=== PATIENT | male | born 1945 | race Caucasian/White ===

== ENCOUNTER → 2016-09-29 | Outpatient (REF) | payer MEDICARE ==
[~2016-09-29] MED LIST: ACET1TAB16 PO; FINA5TAB2 PO; INSULANT SC; METF10004 PO; METO50TA7 PO; MULTCAP PO; Meclizine Hcl PO; NOVOINJ3 SC; PRAV40TA2 PO; TAMS0.4C2 PO; VITA250T29 PO
== END ==
LOC: M LAB REF 10:59
PROVIDERS: ATTEND Family Medicine
DX: R19.7 Diarrhea, unspecified (principal)

== ENCOUNTER → 2017-04-12 | Outpatient (REF) | payer MEDICARE ==
[2017-04-12 23:36] LABS: VITAMIN B12 LEVEL 1035 PG/ML
[2017-04-12 23:37] LABS: FOLATE 16.2 NG/ML
[2017-04-12 23:49] LABS: FERRITIN 86 NG/ML (26-388)
== END ==
LOC: M LAB REF 17:26
DX: R53.83 Other fatigue (principal); D64.9 Anemia, unspecified
CPT/HCPCS: 82746

== ENCOUNTER 2018-01-01 11:50 | Observation (INO) | payer MEDICARE ==
[2018-01-01 12:30] LABS: BASO % 0.4 % (0.0-1.0); EOS # 0.2 10^3/uL (0.0-0.50); EOS % 3.1 % (0.0-3.0); HEMATOCRIT 34.9 % (42.0-52.0); HEMOGLOBIN 11.9 g/dl (13.5-17.5); IMMATURE GRANULOCYTE % 0.3 % (0-3.0); LYMPH # 1.1 10^3/uL (1.5-4.5); MEAN CORPUSCULAR HGB CONC 34.1 g/dl (32.0-36.5); MEAN CORPUSCULAR VOLUME 90.9 fl (80.0-96.0); MONO # 0.8 10^3/uL (0.0-0.8); MONO % 10.1 % (0.0-5.0); NEUTROPHILS # 5.7 10^3/uL (1.8-7.7); NEUTROPHILS % 72.1 % (36.0-66.0); PLATELET COUNT, AUTOMATED 166 10^3/uL (150-450); RED BLOOD COUNT 3.84 10^6/uL (4.30-6.10); RED CELL DISTRIBUTION WIDTH 13.2 % (11.5-14.5); WHITE BLOOD COUNT 7.9 10^3/uL (4.0-10.0)
[2018-01-01 13:36] LABS: BLOOD UREA NITROGEN 31 MG/DL (7-18); CALCIUM LEVEL 8.3 MG/DL (8.8-10.2); CARBON DIOXIDE LEVEL 28 MEQ/L (21-32); CHLORIDE LEVEL 105 MEQ/L (98-107); CK-MB VALUE MASS < 1.0 NG/ML (<3.6); CPK CREATINE PHOSPHOKINASE 36 U/L (39-308); CREATININE FOR GFR 1.35 MG/DL (0.70-1.30); GLUCOSE, FASTING 123 MG/DL (70-100); POTASSIUM SERUM 4.4 MEQ/L (3.5-5.1); SODIUM LEVEL 140 MEQ/L (136-145); TROPONIN I < 0.02 NG/ML (< 0.10)
[2018-01-01 13:37] LABS: FREE T4 0.89 NG/DL (0.76-1.46); NT-PRO BNP 168 PG/ML (<125)
[2018-01-01 13:46] LABS: INR 1.06; PROTHROMBIN TIME 13.9 SECONDS (12.1-14.4)
[2018-01-01 14:15] LABS: ALT/SGPT 26 U/L (12-78); ANION GAP 7 MEQ/L (8-16); AST/SGOT 13 U/L (7-37)
[2018-01-01] MEDS ORDERED: GLUCOSE 4 GM CHEW TABLET PO ×2 (14:15)
[2018-01-01] MEDS ORDERED: GLUCAGON FOR INJ 1 MG VIAL (J1610) SC ×2 (14:15)
[2018-01-01] MEDS ORDERED: DEXTROSE 50% 50 ML SYRINGE IV ×2 (14:15)
[2018-01-01 14:16] LABS: ALBUMIN 3.7 GM/DL (3.2-5.2); ALBUMIN/GLOBULIN RATIO 1.28 (1.00-1.93); ALKALINE PHOSPHATASE 83 U/L (45-117); BILIRUBIN,DIRECT 0.2 MG/DL (0.0-0.2); BILIRUBIN,TOTAL 0.7 MG/DL (0.2-1.0); TOTAL PROTEIN 6.6 GM/DL (6.4-8.2)
[2018-01-01] MEDS: NS 1,000 ML IV ×2 (15:25)
[2018-01-01 15:57] LABS: BEDSIDE GLUCOSE 69 MG/DL (83-110)
[2018-01-01] MEDS: HumaLOG INSULIN (NovoLOG) PER UNIT SC ×4 (17:30→20:09)
[2018-01-01 20:02] LABS: BEDSIDE GLUCOSE 216 MG/DL (83-110)
[2018-01-01 20:27] LABS: CK-MB VALUE MASS < 1.0 NG/ML (<3.6); CPK CREATINE PHOSPHOKINASE 30 U/L (39-308)
[2018-01-01 20:28] LABS: TROPONIN I < 0.02 NG/ML (< 0.10)
[2018-01-01] MEDS: FINASTERIDE 5 MG TAB PO ×2 (21:40)
[2018-01-01] MEDS: HEPARIN SOD (PORCINE) 5000 UNITS/ML VIAL SC ×2 (21:40)
[2018-01-01] MEDS: TAMSULOSIN 0.4 MG CAP PO ×2 (21:40)
[2018-01-01] MEDS: PRAVASTATIN 20 MG TAB PO ×2 (21:40)
[2018-01-01 23:35] LABS: CK-MB VALUE MASS < 1.0 NG/ML (<3.6); CPK CREATINE PHOSPHOKINASE 25 U/L (39-308); TROPONIN I < 0.02 NG/ML (< 0.10)
[2018-01-02] MEDS: HEPARIN SOD (PORCINE) 5000 UNITS/ML VIAL SC ×6 (05:09→20:32)
[2018-01-02 07:26] LABS: BASO % 0.5 % (0.0-1.0); EOS # 0.3 10^3/uL (0.0-0.50); EOS % 5.1 % (0.0-3.0); HEMOGLOBIN 11.6 g/dl (13.5-17.5); IMMATURE GRANULOCYTE % 0.3 % (0-3.0); LYMPH # 1.7 10^3/uL (1.5-4.5); LYMPH % 28.5 % (24.0-44.0); MEAN CORPUSCULAR HEMOGLOBIN 30.8 pg (27.0-33.0); MEAN CORPUSCULAR HGB CONC 33.1 g/dl (32.0-36.5); MEAN CORPUSCULAR VOLUME 92.8 fl (80.0-96.0); MONO # 0.8 10^3/uL (0.0-0.8); MONO % 14.1 % (0.0-5.0); NEUTROPHILS % 51.5 % (36.0-66.0); PLATELET COUNT, AUTOMATED 153 10^3/uL (150-450); RED BLOOD COUNT 3.77 10^6/uL (4.30-6.10); RED CELL DISTRIBUTION WIDTH 13.2 % (11.5-14.5); WHITE BLOOD COUNT 5.9 10^3/uL (4.0-10.0)
[2018-01-02 07:41] LABS: ALBUMIN 3.5 GM/DL (3.2-5.2); ALBUMIN/GLOBULIN RATIO 1.13 (1.00-1.93); ALKALINE PHOSPHATASE 82 U/L (45-117); ALT/SGPT 27 U/L (12-78); ANION GAP 7 MEQ/L (8-16); AST/SGOT 13 U/L (7-37); BILIRUBIN,TOTAL 0.3 MG/DL (0.2-1.0); BLOOD UREA NITROGEN 23 MG/DL (7-18); CALCIUM LEVEL 8.5 MG/DL (8.8-10.2); CARBON DIOXIDE LEVEL 23 MEQ/L (21-32); CHLORIDE LEVEL 107 MEQ/L (98-107); CREATININE FOR GFR 1.03 MG/DL (0.70-1.30); GLOMERULAR FILTRATION RATE > 60.0 (>42); GLUCOSE, FASTING 257 MG/DL (70-100); MAGNESIUM LEVEL 1.9 MG/DL (1.8-2.4); POTASSIUM SERUM 4.5 MEQ/L (3.5-5.1); SODIUM LEVEL 137 MEQ/L (136-145); TOTAL PROTEIN 6.6 GM/DL (6.4-8.2)
[2018-01-02] MEDS: THIAMINE 100 MG TAB PO ×2 (08:45)
[2018-01-02] MEDS: HumaLOG INSULIN (NovoLOG) PER UNIT SC ×8 (08:45→20:32)
[2018-01-02] MEDS: LACTOBACILLUS ACIDOPHILUS CAP (BACID) PO ×2 (08:45)
[2018-01-02] MEDS: ASPIRIN 81 MG ENTERIC TAB PO ×2 (08:45)
[2018-01-02 12:19] LABS: BEDSIDE GLUCOSE 349 MG/DL (83-110)
[2018-01-02] MEDS: amLODIPine 5 MG TAB PO ×2 (14:01)
[2018-01-02 17:16] LABS: BEDSIDE GLUCOSE 188 MG/DL (83-110)
[2018-01-02 20:21] LABS: BEDSIDE GLUCOSE 146 MG/DL (83-110)
[2018-01-02] MEDS: PRAVASTATIN 20 MG TAB PO ×2 (20:31)
[2018-01-02] MEDS: TAMSULOSIN 0.4 MG CAP PO ×2 (20:31)
[2018-01-02] MEDS: FINASTERIDE 5 MG TAB PO ×2 (20:32)
[2018-01-03] MEDS: HEPARIN SOD (PORCINE) 5000 UNITS/ML VIAL SC ×4 (04:46→13:02)
[2018-01-03 06:26] LABS: BASO % 0.6 % (0.0-1.0); EOS # 0.4 10^3/uL (0.0-0.50); EOS % 6.6 % (0.0-3.0); HEMATOCRIT 35.1 % (42.0-52.0); HEMOGLOBIN 11.8 g/dl (13.5-17.5); IMMATURE GRANULOCYTE % 0.2 % (0-3.0); LYMPH # 1.8 10^3/uL (1.5-4.5); LYMPH % 32.3 % (24.0-44.0); MEAN CORPUSCULAR HEMOGLOBIN 30.7 pg (27.0-33.0); MEAN CORPUSCULAR HGB CONC 33.6 g/dl (32.0-36.5); MEAN CORPUSCULAR VOLUME 91.4 fl (80.0-96.0); MONO # 0.6 10^3/uL (0.0-0.8); MONO % 11.8 % (0.0-5.0); NEUTROPHILS # 2.6 10^3/uL (1.8-7.7); NEUTROPHILS % 48.5 % (36.0-66.0); PLATELET COUNT, AUTOMATED 159 10^3/uL (150-450); RED BLOOD COUNT 3.84 10^6/uL (4.30-6.10); RED CELL DISTRIBUTION WIDTH 13.2 % (11.5-14.5); WHITE BLOOD COUNT 5.4 10^3/uL (4.0-10.0)
[2018-01-03 06:49] LABS: ALBUMIN/GLOBULIN RATIO 1.29 (1.00-1.93); ALKALINE PHOSPHATASE 90 U/L (45-117); ALT/SGPT 25 U/L (12-78); ANION GAP 8 MEQ/L (8-16); AST/SGOT 13 U/L (7-37); BILIRUBIN,TOTAL 0.4 MG/DL (0.2-1.0); BLOOD UREA NITROGEN 22 MG/DL (7-18); CALCIUM LEVEL 8.7 MG/DL (8.8-10.2); CARBON DIOXIDE LEVEL 25 MEQ/L (21-32); CHLORIDE LEVEL 106 MEQ/L (98-107); CREATININE FOR GFR 1.09 MG/DL (0.70-1.30); GLOMERULAR FILTRATION RATE > 60.0 (>42); GLUCOSE, FASTING 247 MG/DL (70-100); MAGNESIUM LEVEL 1.8 MG/DL (1.8-2.4); POTASSIUM SERUM 4.3 MEQ/L (3.5-5.1); SODIUM LEVEL 139 MEQ/L (136-145); TOTAL PROTEIN 7.1 GM/DL (6.4-8.2)
[2018-01-03] MEDS: HumaLOG INSULIN (NovoLOG) PER UNIT SC ×4 (08:38→13:02)
[2018-01-03] MEDS: LACTOBACILLUS ACIDOPHILUS CAP (BACID) PO ×2 (08:38)
[2018-01-03] MEDS: amLODIPine 5 MG TAB PO ×4 (08:39→14:14)
[2018-01-03] MEDS: ASPIRIN 81 MG ENTERIC TAB PO ×2 (08:39)
[2018-01-03] MEDS: THIAMINE 100 MG TAB PO ×2 (08:39)
[2018-01-03] MEDS ORDERED: PILL CRUSHER/CUTTER 1 EACH XX ×2 (09:00)
[2018-01-03 11:27] LABS: BEDSIDE GLUCOSE 294 MG/DL (83-110)
== END 2018-01-03 16:04 | disposition home or self-care (01) ==
LOC: M ED INP 01-02 08:19 → M PCU 01-02 15:15 → M ED 11:50 → M ED INP 14:09
DX: R55 Syncope and collapse (principal); N17.9 Acute kidney failure, unspecified; D64.9 Anemia, unspecified; I10 Essential (primary) hypertension; E78.5 Hyperlipidemia, unspecified; E11.9 Type 2 diabetes mellitus without complications; N40.0 Benign prostatic hyperplasia without lower urinary tract symptoms; Z79.82 Long term (current) use of aspirin; Z79.4 Long term (current) use of insulin; Z79.84 Long term (current) use of oral hypoglycemic drugs; Z79.899 Other long term (current) drug therapy
CPT/HCPCS: 71045

== ENCOUNTER → 2018-12-20 | Outpatient (REF) | payer OTHER ==
[~2018-12-20] MED LIST changes: +AMLO10TA PO; +ASPI81TA26 PO; +B-1100TA2 PO; +CINN500T PO; +FLOM0.4C39 PO; +LISI10TA15 PO; +LOPE2CA PO; +METF-791 PO; +NOVO70VL SC; +PROBCAP14 PO
[2018-12-20 12:39] LABS: APPEARANCE, URINE CLOUDY (CLEAR); BACTERIA, URINE AUTO 1+ (NEGATIVE); BILIRUBIN, URINE AUTO NEGATIVE (NEGATIVE); BLOOD, URINE BLOOD 1+ (NEGATIVE); COLOR, URINE YELLOW (YELLOW); GLUCOSE, URINE (UA) AUTO 3+ mg/dL (NEGATIVE); KETONE, URINE AUTO NEGATIVE (NEGATIVE); LEUKOCYTE ESTERASE, URINE AUTO 3+ (NEGATIVE); MUCUS, URINE SMALL (NEGATIVE); NITRITE, URINE AUTO POSITIVE (NEGATIVE); PROTEIN, URINE AUTO NEGATIVE (NEGATIVE); RBC, URINE AUTO 9 /HPF (0-3); SQUAMOUS EPITHELIAL CELL UR AU 0 /HPF (0-6); UROBILINOGEN, URINE AUTO 0.2 mg/dL (0.0-2.0); WBC, URINE AUTO TNTC /HPF (0-3)
== END ==
LOC: M LAB REF 12:09
PROVIDERS: ATTEND Physician Assistant
DX: N39.0 Urinary tract infection, site not specified (principal)

== ENCOUNTER 2019-01-15 13:44 | Inpatient (IN) | payer MEDICARE ==
[~2019-01-15] VITALS: Ht 172.7 cm; Wt 74.1 kg
[~2019-01-15 13:44] MED LIST changes: -AMLO10TA5 PO; -LEVA750T7 PO; -TRES1INJ2 SC
[2019-01-15] MEDS ORDERED: TRES1INJ2 SC (13:54)
[2019-01-15 14:23] LABS: HEMATOCRIT 31.6 % (42.0-52.0); HEMOGLOBIN 10.9 g/dl (13.5-17.5); MEAN CORPUSCULAR HEMOGLOBIN 30.6 pg (27.0-33.0); MEAN CORPUSCULAR HGB CONC 34.5 g/dl (32.0-36.5); MEAN CORPUSCULAR VOLUME 88.8 fl (80.0-96.0); PLATELET COUNT, AUTOMATED 162 10^3/uL (150-450); RED BLOOD COUNT 3.56 10^6/uL (4.30-6.10); WHITE BLOOD COUNT 12.9 10^3/uL (4.0-10.0)
[2019-01-15 14:58] LABS: BLOOD UREA NITROGEN 41 MG/DL (7-18); CARBON DIOXIDE LEVEL 25 MEQ/L (21-32); CHLORIDE LEVEL 100 MEQ/L (98-107); CK-MB VALUE MASS < 1.0 NG/ML (<3.6); CPK CREATINE PHOSPHOKINASE 40 U/L (39-308); CREATININE FOR GFR 1.91 MG/DL (0.70-1.30); GLOMERULAR FILTRATION RATE 36.7 (>42); GLUCOSE, FASTING 288 MG/DL (70-100); POTASSIUM SERUM 5.6 MEQ/L (3.5-5.1); SODIUM LEVEL 131 MEQ/L (136-145); TROPONIN I < 0.02 NG/ML (< 0.10)
[2019-01-15] MEDS: NS 1,000 ML IV SCH ×2 (15:11→20:53)
--- NOTE | 2019-01-15 16:00 | REP ---
Right quadrant sonography: History: Right upper quadrant pain. Rule out obstruction. Findings: Scanning through right upper quadrant of the abdomen demonstrates normal homogeneous liver parenchyma. CBD is normal measuring 0.4 cm in greatest diameter. No intrahepatic or extrahepatic biliary ductal dilation is seen. The gallbladder is surgically absent. Pancreas is obscured by abdominal gas. There is no evidence of ascites or right renal abnormality. The right kidney measures 11.6 x 5.5 x 4.2 cm. Impression: Negative right upper quadrant sonography patient status post cholecystectomy. Electronically Signed by Payam Guardado MD 01/15/2019 04:55 P
[2019-01-15 16:08] LABS: ALT/SGPT 1827 U/L (12-78); AMYLASE 42 U/L (25-115); BILIRUBIN,DIRECT 0.7 MG/DL (0.0-0.2); BILIRUBIN,TOTAL 1.2 MG/DL (0.2-1.0); LIPASE 413 U/L (73-393)
[2019-01-15] MEDS ORDERED: AMLO10TA5 PO (17:35)
[2019-01-15] MEDS ORDERED: SOD POLYSTYRENE SULFONATE SUSP 15 GM/60 ML UD PO ONE (18:15)
--- NOTE | 2019-01-15 18:29 | HPEPDOC ---
[facility] Medical History & Physical Date of Admission Jan 15, 2019 Date of Service: Jan 15, 2019 Primary Care Physician: A Attending Physician: ALLA BLACK MD History and Physical CHIEF COMPLAINT: Sent by PCP for abnormal labs HISTORY OF PRESENT ILLNESS: 74-year-old male with past medical history of hypertension, hyperlipidemia, chronic kidney disease and diabetes mellitus p resents from PCPs office for abnormal labs. Patient was recently treated for UTI with 10 days of antibiotics, which he completed 2 weeks ago. He was feeling well up until last night when he developed nausea and vomiting, vomited 6 times, nonbloody, nonbilious. He did not have any associated symptoms, denies diarrhea or abdominal pain. He started feeling well in the morning, had a routine follow-up with his primary care physician who then sent him to the emergency room for abnormal labs. Patient is currently resting comfortably in the ED without any complaints at all. In the 80s found to have potassium of 5.6, acute kidney injury and acute hepatitis. Patient reports that he takes ibuprofen 400 mg every night, has been taking it for years, reports it was for pain initially, but now is not sure why. As per , he was advised to switch it to Tylenol due to its potential renal toxicity/GI bleed, unsure if he did switch it to Tylenol or not. Patient denies any short of breath, chest pain, nausea, vomiting, abdominal pain or diarrhea at this time. 10 point review of systems negative except for above PAST MEDICAL HISTORY: 1. Hypertension. 2. Diabetes. 3. Chronic kidney disease. 4. Hyperlipidemia 5. BPH PAST SURGICAL HISTORY: 1. Cholecystectomy. 2. Cervical fusion. SOCIAL HISTORY: Never smoker. Denies all: Denies drug use FAMILY HISTORY: Father with polio ALLERGIES: Please see below. HOME MEDICATIONS: Please see below. PHYSICAL EXAMINATION: VITAL SIGNS: Please see below. GENERAL: No distress HEENT: Normocephalic, atraumatic, moist mucous membranes NECK: Supple CARDIOVASCULAR EXAMINATION: S1, S2, no murmurs RESPIRATORY EXAMINATION: Clear to auscultation, no wheezing ABDOMINAL EXAMINATION: Soft, nontender, nondistended, positive bowel sounds EXTREMITIES: Range of motion intact SKIN: No rash NEUROLOGICAL EXAMINATION: Alert and oriented 3, no focal deficits PSYCHIATRIC EXAMINATION: Calm and cooperative LABORATORY DATA: See below. IMAGING: Right upper quadrant ultrasound without acute pathology MICROBIOLOGY: Please see below. ASSESSMENT: 74-year-old male with past medical history of hypertension, diabetes and chronic kidney disease who may have been taking chronic ibuprofen/acetaminophen presents from PCPs office with acute hepatitis and acute kidney injury. PLAN: 1. Acute hepatitis. Etiology unknown, possible drug toxicity versus infection, denies history of hepatitis, recently treated with antibiotics, on metformin and pravastatin, possibly taking ibuprofen/acetaminophen. Acetaminophen and ibuprofen levels ordered, empiric antibiotics, IV fluids, supportive care. 2. Acute kidney injury. Possibly due to medication toxicity versus dehydration Hold NENA inhibitor, hydrochlorothiazide, metformin IV fluids, give 1 dose of Kayexalate for hyperkalemia. 3. Diabetes mellitus. Hold metformin. Slightly scale insulin with fingersticks every before meals and at bedtime 4. Hypertension. Continue Norvasc. Hold hydrochlorothiazide and lisinopril. 5. Hyperlipidemia. Hold pravastatin due to acute hepatitis. 6. BPH. Continue Flomax and finasteride DVT prophylaxis: Heparin subcutaneous GI prophylaxis: Not needed Vital Signs Vital Signs Date Time Temp Pulse Resp B/P (MAP) Pulse Ox O2 Delivery O2 Flow Rate FiO2 01/15/19 17:30 65 127/59 (81) 96 Room Air 01/15/19 13:45 98.4 16 Laboratory Data Labs 24H Laboratory Tests 2 01/15/19 14:09: Nucleated Red Blood Cells % (auto) 0.0, Anion Gap 6L, Glomerular Filtration Rate 36.7L, Calcium Level 9.0, Total Bilirubin 1.2H, Direct Bilirubin 0.7H, Aspartate Amino Transf (AST/SGOT) 1896H, Alanine Aminotransferase (ALT/SGPT) 1827H, Alkaline Phosphatase 292H, Total Creatine Kinase 40, Creatine Kinase MB < 1.0, Creatine Kinase MB Relative Index 2.50, Troponin I < 0.02, Total Protein 7.0, Albumin 4.0, Albumin/Globulin Ratio 1.33, Amylase Level 42, Lipase 413H CBC/BMP Laboratory Tests 01/15/19 14:09 Home Medications Scheduled Amlodipine Besylate (Amlodipine Besylate) 10 Mg Tablet, 10 MG PO DAILY Aspirin (Aspirin EC) 81 Mg Tab, 81 MG PO DAILY Finasteride (Finasteride) 5 Mg Tab, 5 MG PO QHS Insulin Degludec (Tresiba Flextouch U-100) 100 Unit/1 Ml Insuln.pen, 24 UNIT SC QAM Lisinopril/Hydrochlorothiazide (Lisinopril-Hctz 10-12.5 mg Tab) 1 Tab Tab, 1 TAB PO DAILY Metformin HCl (Metformin HCl ER) 500 Mg Tab, 500 MG PO QHS Pravastatin Sodium (Pravastatin Sodium) 40 Mg Tab, 20 MG PO QHS Tamsulosin HCl (Flomax) 0.4 Mg Cap, 0.4 MG PO DAILY Thiamine HCl (Vitamin B-1) 100 Mg Tab, 250 MG PO DAILY Allergies Coded Allergies: No Known Allergies (Unverified , 01/01/18) A-FIB/CHADSVASC A-FIB History Current/History of A-Fib/PAF?: No ALLA BLACK MD Jan 15, 2019 18:29
[2019-01-15] MEDS ORDERED: DEXTROSE 50% 50 ML SYRINGE IV PRN (18:30)
[2019-01-15] MEDS ORDERED: GLUCOSE 4 GM CHEW TABLET PO PRN (18:30)
[2019-01-15] MEDS ORDERED: GLUCAGON FOR INJ 1 MG VIAL (J1610) SC PRN (18:30)
[2019-01-15] MEDS ORDERED: PILL CUTTER 1 EACH XX PRN (18:45)
[2019-01-15 20:10] VITALS: BP 145/67
--- NOTE | 2019-01-15 20:24 | ECGEPIP ---
[facility] - ED Test Date: 2019-01-15 Pat Name: NARCISO QUIJANO Department: Room: - Gender: Male [place] [employer] Researcher: TAMIKA : 1945 Requested By: MARGAUX DU Order Number: [id number] Reading MD: Sam Justice Measurements Intervals [place] Rate: 69 P: 53 AK: 180 QRS: 34 QRSD: 98 T: 39 QT: 351 QTc: 376 Interpretive Statements SINUS RHYTHM BENIGN EARLY REPOLARIZATION SIMILAR TO 01/02/18 Electronically Signed on 01-15-2019 20:23:38 EST by Sam Justice
[2019-01-15] MEDS: CIPROFLOXACIN 400 MG in IV 1 EA IV SCH (20:53)
[2019-01-15] MEDS: HumaLOG INSULIN (NovoLOG) PER UNIT SC SCH (21:48)
[2019-01-15] MEDS: metroNIDAZOLE 500 MG in IV 1 EA IV SCH (23:19)
[2019-01-15] MEDS: FINASTERIDE 5 MG TAB PO SCH (23:19)
[2019-01-16] MEDS: NS 1,000 ML IV SCH ×2 (03:12→07:53)
[2019-01-16 06:00] VITALS: BP 156/70
[2019-01-16 06:21] LABS: HEMOGLOBIN 11.3 g/dl (13.5-17.5); MEAN CORPUSCULAR HEMOGLOBIN 29.7 pg (27.0-33.0); MEAN CORPUSCULAR HGB CONC 33.2 g/dl (32.0-36.5); MEAN CORPUSCULAR VOLUME 89.5 fl (80.0-96.0); PLATELET COUNT, AUTOMATED 147 10^3/uL (150-450); WHITE BLOOD COUNT 7.8 10^3/uL (4.0-10.0)
[2019-01-16 06:49] LABS: ALBUMIN 3.6 GM/DL (3.2-5.2); CALCIUM LEVEL 8.8 MG/DL (8.8-10.2); CREATININE FOR GFR 1.52 MG/DL (0.70-1.30); GLOMERULAR FILTRATION RATE 47.7 (>42); MAGNESIUM LEVEL 2.2 MG/DL (1.8-2.4); POTASSIUM SERUM 4.1 MEQ/L (3.5-5.1); TOTAL PROTEIN 7.1 GM/DL (6.4-8.2)
[2019-01-16] MEDS: THIAMINE 100 MG TAB PO SCH (08:42)
[2019-01-16] MEDS: HumaLOG INSULIN (NovoLOG) PER UNIT SC SCH ×4 (08:42→21:00)
[2019-01-16] MEDS: ASPIRIN 81 MG ENTERIC TAB PO SCH (08:42)
[2019-01-16] MEDS: HEPARIN SOD (PORCINE) 5000 UNITS/ML VIAL SC SCH ×2 (08:43→22:31)
[2019-01-16] MEDS: TAMSULOSIN 0.4 MG CAP PO SCH (08:43)
[2019-01-16] MEDS: CIPROFLOXACIN 400 MG in IV 1 EA IV SCH ×2 (08:43→22:22)
[2019-01-16] MEDS: amLODIPine 10 MG TAB PO SCH (08:43)
[2019-01-16] MEDS: metroNIDAZOLE 500 MG in IV 1 EA IV SCH ×2 (10:47→23:37)
[2019-01-16 14:00] VITALS: BP 138/75
--- NOTE | 2019-01-16 17:12 | IPNPDOC ---
Date Seen The patient was seen on 01/16/19. Progress Note HISTORY OF PRESENT ILLNESS: 74-year-old male with past medical history of hypertension, hyperlipidemia, chronic kidney disease and diabetes mellitus presents from PCPs office for abnormal labs. Patient was recently treated for UTI with 10 days of antibiotics, which he completed 2 weeks ago. He was feeling well up until last night when he developed nausea and vomiting, vomited 6 times, nonbloody, nonbilious. He did not have any associated symptoms, denies diarrhea or abdominal pain. He started feeling well in the morning, had a routine follow- up with his primary care physician who then sent him to the emergency room for abnormal labs. Patient is currently resting comfortably in the ED without any complaints at all. In the 80s found to have potassium of 5.6, acute kidney injury and acute hepatitis. Patient reports that he takes ibuprofen 400 mg every night, has been taking it for years, reports it was for pain initially, but now is not sure why. As per , he was advised to switch it to Tylenol due to its potential renal toxicity/GI bleed, unsure if he did switch it to Tylenol or not. Patient denies any short of breath, chest pain, nausea, vomiting, abdominal pain or diarrhea at this time. 01/16/2019 Patient comfortable in bed without any complaints at this time, renal and liver function improving, denies any short of breath, chest pain, nausea, vomiting, abdominal pain. 10 point review of systems negative except for above HOME MEDICATIONS: Please see below. PHYSICAL EXAMINATION: VITAL SIGNS: Please see below. GENERAL: No distress HEENT: Normocephalic, atraumatic, moist mucous membranes NECK: Supple CARDIOVASCULAR EXAMINATION: S1, S2, no murmurs RESPIRATORY EXAMINATION: Clear to auscultation, no wheezing ABDOMINAL EXAMINATION: Soft, nontender, nondistended, positive bowel sounds EXTREMITIES: Range of motion intact SKIN: No rash NEUROLOGICAL EXAMINATION: Alert and oriented 3, no focal deficits PSYCHIATRIC EXAMINATION: Calm and cooperative LABORATORY DATA: See below. IMAGING: Right upper quadrant ultrasound without acute pathology MICROBIOLOGY: Please see below. ASSESSMENT: 74-year-old male with past medical history of hypertension, diabetes and chronic kidney disease who may have been taking chronic ibuprofen/acetaminophen presents from PCPs office with acute hepatitis and acute kidney injury. PLAN: 1. Acute hepatitis. Etiology unknown, liver function tests improving, supportive care, will monitor. 2. Acute kidney injury. Possibly due to medication toxicity versus dehydration Continue holding hydrochlorothiazide and metformin. Renal function improving, restart lisinopril, discontinue IV fluids. 3. Diabetes mellitus. Hold metformin. Slightly scale insulin with fingersticks every before meals and at bedtime 4. Hypertension. Continue Norvasc. Restarted lisinopril, hold hydrochlorothiazide for now. 5. Hyperlipidemia. Hold pravastatin due to acute hepatitis. 6. BPH. Continue Flomax and finasteride DVT prophylaxis: Heparin subcutaneous GI prophylaxis: Not needed VS, I&O, 24H, Fishbone Vital Signs/I&O Vital Signs Date Time Temp Pulse Resp B/P (MAP) Pulse Ox O2 Delivery O2 Flow Rate FiO2 01/16/19 08:43 64 156/70 01/16/19 06:00 98.6 20 96 01/15/19 20:10 Room Air I&O- Last 24 Hours up to 6 AM 01/16/19 05:59 Intake Total 1975 ml Output Total 0 ml Balance 1975 ml Laboratory Data 24H LABS Laboratory Tests 2 01/15/19 18:10: Lab Scanned Report LAB OTHER 01/15/19 18:57: Lactic Acid Level 1.6, Procalcitonin 3.76, Acetaminophen Level < 2.0L 01/15/19 20:15: Urine Color STANLEY, Urine Appearance CLOUDYH, Urine pH 5.0, Urine Specific [place] 1.012, Urine Protein 1+H, Urine Glucose (UA) 3+H, Urine Ketones NEGATIVE, Urine Blood 1+H, Urine Nitrite NEGATIVE, Urine Bilirubin NEGATIVE, Urine Urobilinogen 0.2, Urine Leukocyte Esterase 3+H, Urine WBC (Auto) TNTCH, Urine RBC (Auto) 9H, Urine Hyaline Casts (Auto) 2, Urine Bacteria (Auto) 3+H, Urine Squamous Epithelial Cells 1, Urine Transitional Epithelial Cells 1, Urine Amorphous Sediment SMALLH, Urine Mucus (Auto) SMALL, Urine Sperm (Auto) 01/15/19 20:36: Bedside Glucose (Misc Panel) 295H 01/16/19 06:06: Nucleated Red Blood Cells % (auto) 0.0, Anion Gap 3L, Glomerular Filtration Rate 47.7, Calcium Level 8.8, Magnesium Level 2.2, Total Bilirubin 1.0, Aspartate Amino Transf (AST/SGOT) 649H, Alanine Aminotransferase (ALT/SGPT) 1214H, Alkaline Phosphatase 342H, Total Protein 7.1, Albumin 3.6, Albumin/Globulin Ratio 1.03 01/16/19 11:32: Bedside Glucose (Misc Panel) 192H CBC/BMP Laboratory Tests 01/16/19 06:06 Microbiology Microbiology 01/15/19 Urine Culture, Received Pending 01/15/19 Blood Culture, Received Pending ALLA BLACK MD Jan 16, 2019 17:12
[2019-01-16] MEDS ORDERED: LISINOPRIL 10 MG TAB PO SCH (21:00)
[2019-01-16 22:00] VITALS: BP 119/56
[2019-01-16] MEDS: FINASTERIDE 5 MG TAB PO SCH (22:22)
[2019-01-16 22:27] VITALS: BP 136/63
[2019-01-17 06:00] VITALS: BP 145/70
[2019-01-17 07:09] LABS: HEMATOCRIT 37.4 % (42.0-52.0); HEMOGLOBIN 12.1 g/dl (13.5-17.5); MEAN CORPUSCULAR HEMOGLOBIN 30.4 pg (27.0-33.0); MEAN CORPUSCULAR HGB CONC 32.4 g/dl (32.0-36.5); PLATELET COUNT, AUTOMATED 164 10^3/uL (150-450); RED BLOOD COUNT 3.98 10^6/uL (4.30-6.10); WHITE BLOOD COUNT 7.5 10^3/uL (4.0-10.0)
[2019-01-17 07:34] LABS: ALBUMIN 3.7 GM/DL (3.2-5.2); BILIRUBIN,TOTAL 0.5 MG/DL (0.2-1.0); CREATININE FOR GFR 1.29 MG/DL (0.70-1.30); GLOMERULAR FILTRATION RATE 57.6 (>42); MAGNESIUM LEVEL 1.9 MG/DL (1.8-2.4); PHOSPHORUS LEVEL 2.7 MG/DL (2.5-4.9); POTASSIUM SERUM 4.2 MEQ/L (3.5-5.1); TOTAL PROTEIN 7.3 GM/DL (6.4-8.2)
[2019-01-17] MEDS: CIPROFLOXACIN 400 MG in IV 1 EA IV SCH (08:28)
[2019-01-17] MEDS: HumaLOG INSULIN (NovoLOG) PER UNIT SC SCH ×2 (08:29→12:44)
[2019-01-17] MEDS: HEPARIN SOD (PORCINE) 5000 UNITS/ML VIAL SC SCH (08:29)
[2019-01-17] MEDS: ASPIRIN 81 MG ENTERIC TAB PO SCH (08:29)
[2019-01-17] MEDS: THIAMINE 100 MG TAB PO SCH (08:29)
[2019-01-17] MEDS: TAMSULOSIN 0.4 MG CAP PO SCH (08:29)
[2019-01-17 08:31] VITALS: BP 121/55
[2019-01-17] MEDS: amLODIPine 10 MG TAB PO SCH (08:31)
[2019-01-17] MEDS: metroNIDAZOLE 500 MG in IV 1 EA IV SCH (10:18)
[2019-01-17] MEDS ORDERED: LEVA750T7 PO (13:32)
--- NOTE | 2019-01-17 17:19 | DS.PDOC ---
Discharge Summary General Date of Admission Jan 15, 2019 at 18:10 Date of Discharge 01/17/2019 Attending Physician: ALLA BLACK MD Discharge Summary PROCEDURES PERFORMED DURING STAY: None. ADMITTING DIAGNOSES: 1. Acute kidney injury, hepatitis. DISCHARGE DIAGNOSES: 1. Acute kidney injury, hepatitis. COMPLICATIONS/CHIEF COMPLAINT: Diabetes Mellitus Hepatitis Hld Htn Renal Fa ilure. HISTORY OF PRESENT ILLNESS: 74-year-old male with past medical history of hypertension, hyperlipidemia and diabetes mellitus, was admitted for acute renal failure and hepatitis. The etiology of his abnormal labs was unknown, most likely medication related. He was stopped on all renal and hepatic toxic medications, with subsequent resolution of his acute kidney injury and significant improvement in hepatitis. His renal function is back to baseline, hepatic function, close to baseline. Patient will be discharged with close follow-up with primary care physician and repeat labs within 1 week. He is advised to hold pravastatin and oral diabetic meds for now until liver function returns to normal and he has follow-up with his primary care physician. Patient is hemodynamically and clinically stable for discharge at this time. HOSPITAL COURSE: As above. DISCHARGE MEDICATIONS: Please see below. ALLERGIES: Please see below. PHYSICAL EXAMINATION: VITAL SIGNS: Please see below. GENERAL: No distress HEENT: Normocephalic, atraumatic, moist mucous membranes NECK: Supple CARDIOVASCULAR EXAMINATION: S1, S2, no murmurs RESPIRATORY EXAMINATION: Clear to auscultation, no wheezing ABDOMINAL EXAMINATION: Soft, nontender, nondistended, positive bowel sounds EXTREMITIES: Range of motion intact SKIN: No rash NEUROLOGICAL EXAMINATION: Alert and oriented 3, no focal deficits PSYCHIATRIC EXAMINATION: Calm and cooperative LABORATORY DATA: Please see below. PROGNOSIS: Good ACTIVITY: As tolerated. DIET: Cardiac with consistent carbs DISCHARGE PLAN: She will follow-up with PCP in 1-2 weeks and have blood work repeated in one week DISPOSITION: 01 Home, Self-Care. DISCHARGE INSTRUCTIONS: 1. As above. DISCHARGE CONDITION: Stable. TIME SPENT ON DISCHARGE: Greater than 34 minutes. Vital Signs/I&Os Vital Signs Date Time Temp Pulse Resp B/P (MAP) Pulse Ox O2 Delivery O2 Flow Rate FiO2 01/17/19 08:31 65 121/55 01/17/19 06:00 98.3 20 96 01/16/19 14:00 Room Air I&O- Last 24 Hours up to 6 AM 01/17/19 05:59 Intake Total 3425 ml Output Total 600 ml Balance 2825 ml Laboratory Data Labs 24H Laboratory Tests 2 01/16/19 18:00: Bedside Glucose (Misc Panel) 278H 01/16/19 20:48: Bedside Glucose (Misc Panel) 194H 01/17/19 06:26: Nucleated Red Blood Cells % (auto) 0.0, Anion Gap 6L, Glomerular Filtration Rate 57.6, Calcium Level 9.0, Phosphorus Level 2.7, Magnesium Level 1.9, Total Bilirubin 0.5, Aspartate Amino Transf (AST/SGOT) 151H, Alanine Aminotransferase (ALT/SGPT) 747H, Alkaline Phosphatase 295H, Total Protein 7.3, Albumin 3.7, Albumin/Globulin Ratio 1.03 01/17/19 11:39: Bedside Glucose (Misc Panel) 224H CBC/BMP Laboratory Tests 01/17/19 06:26 FSBS Laboratory Tests Test 01/16/19 18:00 01/16/19 20:48 01/17/19 11:39 Range/Units Bedside Glucose (Misc Panel) 278 194 224 83-110 MG/DL Microbiology Microbiology 01/15/19 Urine Culture - Final, Complete Escherichia Coli 01/15/19 Blood Culture - Preliminary, Resulted No growth after 24 hours . All specim... Discharge Medications Scheduled Amlodipine Besylate (Amlodipine Besylate) 10 Mg Tablet, 10 MG PO DAILY, (Reported) Aspirin (Aspirin EC) 81 Mg Tab, 81 MG PO DAILY, (Reported) Finasteride (Finasteride) 5 Mg Tab, 5 MG PO QHS, (Reported) Insulin Degludec (Tresiba Flextouch U-100) 100 Unit/1 Ml Insuln.pen, 24 UNIT SC QAM, (Reported) Levofloxacin (Levaquin) 750 Mg Tablet, 1 TAB PO DAILY Lisinopril/Hydrochlorothiazide (Lisinopril-Hctz 10-12.5 mg Tab) 1 Tab Tab, 1 TAB PO DAILY, (Reported) Tamsulosin HCl (Flomax) 0.4 Mg Cap, 0.4 MG PO DAILY, (Reported) Thiamine HCl (Vitamin B-1) 100 Mg Tab, 250 MG PO DAILY, (Reported) Allergies Coded Allergies: No Known Allergies (Unverified , 01/01/18) ALLA BLACK MD Jan 17, 2019 17:19
== END 2019-01-17 14:08 | disposition home or self-care (01) | DRG 442 ==
LOC: M ED 13:44 → M ED INP 18:10 → M MSPAV 20:10
PROVIDERS: ADMIT Internal Medicine; ATTEND Internal Medicine
DX: B17.9 Acute viral hepatitis, unspecified (principal); N17.9 Acute kidney failure, unspecified; R74.8 Abnormal levels of other serum enzymes; E87.5 Hyperkalemia; E11.9 Type 2 diabetes mellitus without complications; I10 Essential (primary) hypertension; E78.5 Hyperlipidemia, unspecified; Z79.899 Other long term (current) drug therapy; Z79.82 Long term (current) use of aspirin; Z79.4 Long term (current) use of insulin; N40.0 Benign prostatic hyperplasia without lower urinary tract symptoms

== ENCOUNTER → 2019-01-15 | Outpatient (REF) | payer MEDICARE ==
[~2019-01-15] MED LIST changes: +AMLO10TA5 PO; +LEVA750T7 PO; +TRES1INJ2 SC
[2019-01-15 14:11] LABS: HEPATITIS A ANTIBODY IGM NEGATIVE (NEGATIVE); HEPATITIS B CORE ANTIBODY IGM NEGATIVE (NEGATIVE); HEPATITIS B SURFACE ANTIGEN NEGATIVE (NEGATIVE); HEPATITIS C VIRUS ABY INDEX 0.1 INDEX (<0.8)
== END ==
LOC: M LAB REF 12:26
PROVIDERS: ATTEND Family Medicine
DX: R74.8 Abnormal levels of other serum enzymes (principal)

== ENCOUNTER → 2019-01-15 | Outpatient (CLI) | payer MEDICARE ==
--- NOTE | 2019-01-15 13:08 | REP ---
CT brain: 01/15/2019. Indication: Head trauma. Comparison: 10/23/2014. Technique: New unenhanced axial CT images of the brain were obtained from skull base to vertex. Findings: There is no acute intracranial hemorrhage, acute cortical infarction, mass effect, hydrocephalus or acute cortical infarction. Intracranial atherosclerotic disease is present. Age-related volume loss is present. Impression: No acute intracranial process. Electronically Signed by Taj Khan DO 01/15/2019 12:59 P
== END ==
LOC: M RAD 12:34
PROVIDERS: ATTEND Family Medicine
DX: S09.90XA Unspecified injury of head, initial encounter (principal)

== ENCOUNTER → 2019-01-30 | Outpatient (REF) | payer MEDICARE ==
[~2019-01-30] MED LIST changes: +AMLO10TA5 PO; +LEVA750T7 PO; +TRES1INJ2 SC
[2019-01-31 11:01] LABS: HEPATITIS A ANTIBODY IGM NEGATIVE (NEGATIVE); HEPATITIS B CORE ANTIBODY IGM NEGATIVE (NEGATIVE); HEPATITIS B SURFACE ANTIGEN NEGATIVE (NEGATIVE); HEPATITIS C VIRUS ABY INDEX 0.1 INDEX (<0.8)
== END ==
LOC: M LAB REF 17:21
PROVIDERS: ATTEND Registered Nurse
DX: R94.5 Abnormal results of liver function studies (principal)

== ENCOUNTER → 2019-04-17 | Outpatient (REF) | payer MEDICARE ==
[~2019-04-17] MED LIST changes: +TIMO0.5S39 OU; +ZEST1TAB2 PO
[2019-04-17 17:20] LABS: FERRITIN 97 NG/ML (26-388); IRON (FE) 112 UG/DL (65-175); PERCENT SATURATION 40.1 % (19.7-50.0); TOTAL IRON BINDING CAPACITY 279 UG/DL (250-450)
[2019-04-18 11:28] LABS: VITAMIN B12 LEVEL 1006 PG/ML
[2019-04-18 11:54] LABS: FOLATE > 24.0 NG/ML
== END ==
LOC: M LAB REF 16:18
PROVIDERS: ATTEND Family Medicine
DX: D64.9 Anemia, unspecified (principal); E11.21 Type 2 diabetes mellitus with diabetic nephropathy

== ENCOUNTER → 2020-02-24 | Outpatient (REF) | payer MEDICARE ==
[~2020-02-24] MED LIST changes: -AMLO10TA5 PO; +AMLO1TAB25 PO; -METF-791 PO; +METF-838 PO
[2020-02-24 17:19] LABS: PERCENT SATURATION 83.6 % (19.7-50.0)
[2020-02-24 17:27] LABS: FOLATE 12.8 NG/ML
[2020-02-25 13:58] LABS: ATYPICAL LYMPH 8 % (0-5); BASOPHILS 1 % (0-1); EOSINOPHILS 2 % (0-3); LYMPHOCYTES 65 % (16-44); MONOCYTES 2 % (0-5); NEUTROPHILS 22 % (28-66)
[2020-02-25 14:00] LABS: ANISOCYTOSIS 1+
[2020-02-25 14:01] LABS: POIKILOCYTOSIS 1+
[2020-02-25 14:03] LABS: OVALOCYTES 1+
[2020-02-25 14:05] LABS: PLATELET ESTIMATE DECREASED (NORMAL)
== END ==
LOC: M LAB REF 16:27
PROVIDERS: ATTEND Family Medicine
DX: D64.9 Anemia, unspecified (principal); D72.9 Disorder of white blood cells, unspecified

== ENCOUNTER → 2020-02-28 | Outpatient (REF) | payer MEDICARE | LOC: M LAB REF 09:00 | PROVIDERS: ATTEND Family Medicine | DX: R19.7 Diarrhea, unspecified (principal) ==

== ENCOUNTER 2020-03-09 10:13 | Emergency (ER) | payer MEDICARE ==
[2020-03-09] MEDS ORDERED: NS 500 ML IV ONE (10:30)
[2020-03-09] MEDS ORDERED: NS 1,000 ML IV SCH (11:42)
[2020-03-09] MEDS ORDERED: EPINEPHrine INJ 1 MG/ML 1ML AMP IM PRN (11:45)
[2020-03-09] MEDS ORDERED: ALBUTEROL SULFATE 2.5 MG/0.5 ML INH NEB SOLN INH PRN (11:45)
[2020-03-09] MEDS ORDERED: methylPREDNISolone 125MG 2ML VIAL IV PRN (11:45)
[2020-03-09] MEDS ORDERED: CASIRIVIMAB (REGN10933) 1,200 MG, IMDEVIMAB (REGN10987) 1,200 MG in NS 230 ML IV ONE (11:45)
[2020-03-09] MEDS ORDERED: ALBUTEROL 90 MCG/ACT 8GM HFA INHALER INH PRN (11:45)
[2020-03-09] MEDS ORDERED: diphenhydrAMINE 50MG/ML VIAL (J1200) IV PRN (11:45)
[2020-03-09 12:00] VITALS: BP 137/63
[2020-03-25] MEDS ORDERED: VITA500C24 PO (13:29)
[2020-03-25] MEDS ORDERED: VITMTA PO (13:29)
[2020-03-25] MEDS ORDERED: NOVOINJ SC (13:29)
[2020-03-25] MEDS ORDERED: D 101000 PO (13:29)
[2020-03-25] MEDS ORDERED: FERR325T16 PO (13:29)
== END 2020-03-09 12:11 | disposition home or self-care (01) ==
LOC: M ED 10:13
DX: U07.1 COVID-19 (principal); R19.7 Diarrhea, unspecified; E11.9 Type 2 diabetes mellitus without complications; E78.5 Hyperlipidemia, unspecified; I10 Essential (primary) hypertension; H81.09 Meniere's disease, unspecified ear
CPT/HCPCS: 96360; 99285; M0243

== ENCOUNTER 2020-03-09 12:16 | Outpatient (CLI) | payer MEDICARE ==
[~2020-03-09 12:16] MED LIST changes: +ALBUTEROL 90 MCG/ACT 8GM HFA INHALER INH PRN; +ALBUTEROL SULFATE 2.5 MG/0.5 ML INH NEB SOLN INH PRN; +EPINEPHrine INJ 1 MG/ML 1ML AMP IM PRN; +NS 1,000 ML IV SCH; +diphenhydrAMINE 50MG/ML VIAL (J1200) IV PRN; +methylPREDNISolone 125MG 2ML VIAL IV PRN
--- NOTE | 2020-03-09 12:23 | IPNPDOC ---
Subjective Date Seen The patient was seen on 03/09/20. Subjective Chief Complaint/HPI Mr. Garcia is a 75 year old male with insulin dependent diabetes mellitus who recently tested positive with COVID 19 and here with weakness, fatigue, cough, and diarrhea. Patient tested positive for COVID on 03/03/2020 (within 24 hours of symptoms). He was doing well at home, until this morning he woke up with diarrhea and feeling weak and lethargic. He came to the ED. He has not needed oxygen and breathing at room air. When I saw him, he was feeling better. Denies fever, dyspnea, abdominal pain, or dysuria. We spoke about the monoclonal antibiotics and the risks involved such as allergic reaction or reactions to the process of infusion such as pain, swelling, bruising, and infection. He was okay with the risks and signed consent for the monoclonal antibody infusion. He will be receiving Casirivimab/Imdevimab today. PMH 1. Hypertension 2. Dyslipidemia 3. Insulin dependent diabetes mellitus 4. Meniere's disease 5. Syncope 6. BPH PSH 1. Cholecystectomy 2. Appendectomy 3. Right shoulder fracture 4. Cervical fusion 5. Carpal tunnel release bilaterally 6. Ulnar nerve release bilaterally 7. Cataracts surgery (lens implant on left eye) 8. Tonsillectomy Family history Mother at age 96, without any medical problems Father at age 63, had history of polio Social history Tobacco use: Denies Alcohol use: Denies Recreational drug use: Denies Constitutional: Reports: Weakness; Denies: Fever Eyes: Denies: Vision change ENT: Reports: Other Symptoms (Hard of hearing); Denies: Sore Throat Skin: Denies: Rash Pulmonary: Reports: Cough; Denies: Dyspnea Cardiovascular: Denies: Chest Pain Gastrointestinal: Reports: Diarrhea; Denies: Abdominal Pain Genitourinary: Denies: Dysuria Hematologic: Denies: Bruising Neurological: Denies: Numbness Objective Physical Examination General Exam: Positive: Alert, Cooperative, No Acute Distress Eye Exam: Positive: EOMI; Negative: Sclera icteric ENT Exam: Positive: Atraumatic Neck Exam: Positive: Supple Chest Exam: Positive: Clear to auscultation Heart Exam: Positive: Rate Normal, Regular Rhythm Abdomen Exam: Positive: Normal bowel sounds, Soft; Negative: Tenderness Extremity Exam: Negative: Edema Neuro Exam: Positive: Normal Speech Psych Exam: Positive: Mental status NL, Mood NL Assessment /Plan Assessment Mr. Garcia is a 75 year old male with insulin dependent diabetes mellitus who recently tested positive with COVID 19 and here with weakness, fatigue, cough, and diarrhea. He is a candidate for outpatient monoclonal antibodies. We discussed risks and benefits of monoclonal antibodies. He was agreeable and signed the consent form. Will infuse with Carsirivimab/Imdevimab and monitor for reactions to the infusion. He will then be released. He should follow up with his PCP in a week. Plan/VTE VTE Prophylaxis Ordered?: No VTE Exclusion Mechanical Proph: Other (Going home today) VTE Exclusion Pharmacological: Other (Going home today) Plan 1. COVID 19 Infection -Positive on 03/03/2020 -Casirivimab/Imdevimab infusion -Continue self quarantine at home -Follow up with PCP in a week for ER visit. -If symptoms worsen, he should return to the ED for re-evaluation 2. DM -Continue with carbohydrate consistent diet -Continue with home insulin regimen 3. Hypertension -Blood pressure acceptable -Continue with amlodipine, lisinopril and HCTZ 4. BPH -Continue with Finasteride and Tamsulosin 5. Glaucoma -Continue with Timolol LAWSON LUNA DO Mar 09, 2020 12:22
[2020-03-09 12:30] VITALS: BP 157/67
[2020-03-09 13:55] VITALS: BP 138/76
[2020-03-09 14:00] VITALS: BP 169/72
[2020-03-09] MEDS ORDERED: CASIRIVIMAB (REGN10933) 1,200 MG, IMDEVIMAB (REGN10987) 1,200 MG in NS 230 ML IV ONE (14:00)
[2020-03-09 14:30] VITALS: BP 148/57
[2020-03-09 15:00] VITALS: BP 149/68
[2020-03-09 16:00] VITALS: BP 158/67
== END 2020-03-09 16:22 ==
LOC: M OPCLIICU 12:16 → M ICU 12:16 → M OPCLIICU 16:22
PROVIDERS: ATTEND Internal Medicine
DX: U07.1 COVID-19 (principal)

== ENCOUNTER → 2020-03-22 | Outpatient (CLI) | payer MEDICARE ==
[~2020-03-22] MED LIST changes: -ALBUTEROL 90 MCG/ACT 8GM HFA INHALER INH PRN; -ALBUTEROL SULFATE 2.5 MG/0.5 ML INH NEB SOLN INH PRN; +D 101000 PO; -EPINEPHrine INJ 1 MG/ML 1ML AMP IM PRN; +FERR325T16 PO; +NOVOINJ SC; -NS 1,000 ML IV SCH; +VITA500C24 PO; +VITMTA PO; -diphenhydrAMINE 50MG/ML VIAL (J1200) IV PRN; -methylPREDNISolone 125MG 2ML VIAL IV PRN
[2020-03-22 10:03] LABS: HEMATOCRIT 27.8 % (42.0-52.0); MEAN CORPUSCULAR HEMOGLOBIN 31.7 pg (27.0-33.0); MEAN CORPUSCULAR HGB CONC 32.4 g/dl (32.0-36.5); MEAN CORPUSCULAR VOLUME 97.9 fl (80.0-96.0); PLATELET COUNT, AUTOMATED 165 10^3/uL (150-450); RED BLOOD COUNT 2.84 10^6/uL (4.30-6.10)
[2020-03-22 10:38] LABS: ALBUMIN 3.4 GM/DL (3.2-5.2); ALT/SGPT 67 U/L (12-78); BILIRUBIN,TOTAL 0.3 MG/DL (0.2-1.0); BLOOD UREA NITROGEN 30 MG/DL (7-18); CALCIUM LEVEL 8.6 MG/DL (8.8-10.2); CARBON DIOXIDE LEVEL 28 MEQ/L (21-32); CHLORIDE LEVEL 104 MEQ/L (98-107); GLOMERULAR FILTRATION RATE > 60.0 (>42); GLUCOSE, FASTING 208 MG/DL (70-100); POTASSIUM SERUM 4.6 MEQ/L (3.5-5.1); SODIUM LEVEL 139 MEQ/L (136-145); TOTAL PROTEIN 6.6 GM/DL (6.4-8.2)
[2020-03-22 11:44] LABS: ATYPICAL LYMPH 7 % (0-5); EOSINOPHILS 1 % (0-3); LYMPHOCYTES 64 % (16-44); MONOCYTES 3 % (0-5); NEUTROPHILS 25 % (28-66)
[2020-03-22 11:45] LABS: PLATELET ESTIMATE NORMAL (NORMAL)
== END ==
LOC: M LAB 08:13
PROVIDERS: ATTEND Family Medicine
DX: D72.89 Other specified disorders of white blood cells (principal)

== ENCOUNTER → 2020-03-31 | Outpatient (CLI) | payer MEDICARE ==
[~2020-03-31] MED LIST changes: +ACETAMINOPHEN TAB 650MG DOSE (2X325MG) PO ONE; +LIDOCAINE 1% MDV 20ML VIAL As Ordered ONE
[2020-03-31 11:19] LABS: HEMATOCRIT 25.4 % (42.0-52.0); HEMOGLOBIN 8.2 g/dl (13.5-17.5); MEAN CORPUSCULAR HEMOGLOBIN 31.8 pg (27.0-33.0); MEAN CORPUSCULAR HGB CONC 32.3 g/dl (32.0-36.5); MEAN CORPUSCULAR VOLUME 98.4 fl (80.0-96.0); PLATELET COUNT, AUTOMATED 192 10^3/uL (150-450); RED BLOOD COUNT 2.58 10^6/uL (4.30-6.10); WHITE BLOOD COUNT 3.9 10^3/uL (4.0-10.0)
[2020-03-31 12:54] VITALS: BP 162/66
--- NOTE | 2020-03-31 18:05 | REP ---
INDICATION: ACUTE LEUKEMIA. COMPARISON: None. TECHNIQUE: The procedure was performed under the direct supervision of Dr. Valenzuela. The risks and benefits of the procedure were explained to the patient and informed consent was obtained. The right iliac crest was localized using CT guidance. The skin was prepped and draped in a sterile fashion. 1% lidocaine was used as a local anesthetic. Using CT guidance an 11 gauge bone biopsy system was inserted and 4 cc of marrow fluid was withdrawn. One core biopsy sample was then obtained. The patient tolerated the procedure well and there were no immediate complications. After the appropriate amount to monitor convalescence the patient was discharged from the department. FINDINGS: None IMPRESSION: CT-guided right iliac bone marrow biopsy. <Electronically signed by Abdelrahman Pichardo > 03/31/20 [id number] <Electronically signed by Didier Valenzuela > 03/31/20 [id number]
== END ==
LOC: M IRPRO 10:23
PROVIDERS: ATTEND Internal Medicine Hematology & Oncology
DX: C92.00 Acute myeloblastic leukemia, not having achieved remission (principal); Z79.899 Other long term (current) drug therapy